=== PATIENT | female | born 1975 | race African-American/Black ===

== ENCOUNTER 2017-01-07 02:10 | Inpatient (IN) | payer BC ==
--- NOTE | ~2017-01-07 | DS ---
Discharge Summary [facility] [address] [place]. [address] NAME: GOKUL YAN : 75 STATUS : DIS IN PAT#: [id number] AGE: 41 ADM/REG DATE : 01/07/17 MR#: [id number] REPORT SERV DATE: 01/11/17 DICTATED BY: WALDO NEVES I. DATE: 01/10/17 REPORT STATUS : Draft TRANSCRIBED BY: MODL DATE: 01/10/17 ADMISSION DATE: 01/07/2017 DISCHARGE DATE: 01/10/2017 ADMITTING DIAGNOSES: 1. Right tubo-ovarian abscess. 2. Chronic anemia. DISCHARGE DIAGNOSES: 1. Right tubo-ovarian abscess. 2. Chronic anemia. PROCEDURES: Interventional radiology percutaneous drainage of right tubo-ovarian abscess. HISTORY OF PRESENT ILLNESS: Ms. Yan is a 41-year-old 2, para 2, who presented with lower abdominal and pelvic pain. Ultrasound was significant for a 10 cm right tubo- ovarian abscess. Upon admit, her vital signs were stable. HOSPITAL COURSE: The patient was admitted to the 4th floor and started on Zosyn and Flagyl for antibiotic coverage. On hospital day 1, she was sent to interventional radiology for percutaneous drainage of the right tubo-ovarian abscess. After drainage, she stated she felt much better and was able to tolerate food without difficulty. On hospital day 2, the patient again continued to improve. Her T-max was noted to be 100.3, and her white blood cells had dropped from 20,000 to 16,000. On hospital day 3, the patient continued to do well; however, she did have a fever of 100.7 overnight. Her white blood cell count continued to fall to 13,000. Her hemoglobin was noted to be 7.7. The patient states she has chronic anemia which is followed by her primary care doctor when questioned. On hospital day 4, the patient states she again continued to do well. Her pain was relieved. She had been afebrile for approximately 48 hours. Her vital signs were stable, and her white blood cell count was down to 9.4. She was discharged home in a stable condition; tolerating a regular diet, ambulating, urinating, and defecating without difficulty. DISCHARGE INSTRUCTIONS: The patient is to follow up with Dr. Reynolds on 01/11/2017 or 01/12/2017 for hospital followup and ultrasound. She is to call the office or present to the emergency room if she has a temperature greater than 100.4, severe nausea and vomiting, or severe abdominal pain. DISCHARGE MEDICATIONS: 1. Doxycycline 100 mg 1 tablet p.o. q.12 hours for 10 days to complete a 14-day course of antibiotics. 2. Percocet 5/325 one tab p.o. q.6 hours p.r.n. pain, #10. 3. Anaprox Double Strength 1 tablet p.o. q.12 hours, #30. 4. EzFe 1 tablet p.o. q.12 hours, #60. Discharge Summary [address] [address] NAME: GOKUL YAN : 75 STATUS : DIS IN [facility]#: [id number] AGE: 41 ADM/REG DATE : 01/07/17 MR#: [id number] REPORT SERV DATE: 01/11/17 DICTATED BY: WALDO NEVES I. DATE: 01/10/17 REPORT STATUS : Draft TRANSCRIBED BY: VAL DATE: 01/10/17 CII/VAL Waldo Neves M.D. / [id number] CC: Waldo Neves M.D.
[2017-01-07 01:38] LABS: ASCORBIC ACID (UR NOT ORDER) 40 (NEG); BILIRUBIN, URINE NEGATIVE (NEG); ER URINALYSIS TAT 0 Hrs 00 Mins; KETONE, URINE NEGATIVE (NEG); LEUKOCYTE ESTERASE(NOT OR NEG (NEG); NITRITE (URINE) POS (NEG); WBC (NOT ORDERED) (RFLEX) 4 (0-5)
[2017-01-07 01:55] LABS: BASOPHILS 0 %; BASOPHILS ABSOLUTE 0.01 10/3/uL (0.0-0.16); EOSINOPHILS 0 %; EOSINOPHILS ABSOLUTE 0.01 10/3/uL (0.0-0.53); ER CBC TAT 0 Hrs 07 Mins; HEMATOCRIT 30.8 % (36.0-48.0); HEMOGLOBIN 9.7 g/dL (12.0-16.0); IMMATURE GRANULOCYTES 0.4 %; IMMATURE GRANULOCYTES ABSOLUTE 0.08 10/3/uL (0.0-0.11); LYMPHOCYTES 3.3 %; LYMPHOCYTES ABSOLUTE 0.66 10/3/uL (0.67-4.30); MEAN CORPUS HGB CONC 31.5 g/dL (32.0-36.0); MEAN CORPUSCULAR HEMOGLOB 25.4 pg (26.0-34.0); MEAN CORPUSCULAR VOLUME 80.6 fL (80-100); MEAN PLATELET VOLUME 8.8 fL (9.2-13.0); MONOCYTES 1.2 %; MONOCYTES ABSOLUTE 0.24 10/3/uL (0.21-1.20); NEUTROPHILS 95.1 %; NEUTROPHILS ABSOLUTE 19.08 10/3/uL (2.02-8.40); PLATELET COUNT 494 10/3/uL (150-400); RBC DISTRIBUTION WIDTH 16.9 % (12.0-16.0); RED CELL COUNT 3.82 10/6/uL (4.0-5.6); WHITE BLOOD CELLS 20.1 10/3/uL (4.5-10.5)
[2017-01-07 01:57] LABS: MANUAL DIFF NO %
[2017-01-07 02:07] LABS: BUN (BLOOD UREA NITROGEN) 5 MG/DL (6-23); CALCIUM, SERUM 8.8 MG/DL (8.5-10.4); CHLORIDE, SERUM 107 MMOL/L (96-112); CO2 (CARBON DIOXIDE) 27 MMOL/L (24-34); GFR AFRICAN AMERICAN 131 ML/MIN (>=60); GFR NON AFRICAN AMERICAN 113 ML/MIN (>=60); GLUCOSE, SERUM 148 MG/DL (60-99); POTASSIUM, SERUM 3.8 MMOL/L (3.5-5.3); SODIUM, SERUM 145 MMOL/L (135-148)
[2017-01-07 02:42] LABS: LACTATE 0.9 MMOL/L (0.3-2.4)
[2017-01-07 05:19] LABS: CHLAMYDIA TRACH PCR NOT DETECTED (NOT DETEC); GC PCR NOT DETECTED (NOT DETECT); SOURCE: FEMALE URINE
[2017-01-07 10:07] LABS: INTERNATIONAL NORMAL RATI 1.3 UNITS (-); PROTIME (NOT ORD) 16.4 SEC (12.0-14.5)
[2017-01-07 10:08] LABS: PARTIAL THROMBO TIME 41.3 SEC (22.5-37.2)
[2017-01-08 05:17] LABS: BASOPHILS 0.1 %; BASOPHILS ABSOLUTE 0.01 10/3/uL (0.0-0.16); EOSINOPHILS ABSOLUTE 0.17 10/3/uL (0.0-0.53); HEMOGLOBIN 8.1 g/dL (12.0-16.0); IMMATURE GRANULOCYTES 0.3 %; IMMATURE GRANULOCYTES ABSOLUTE 0.05 10/3/uL (0.0-0.11); LYMPHOCYTES 8.9 %; LYMPHOCYTES ABSOLUTE 1.49 10/3/uL (0.67-4.30); MEAN CORPUS HGB CONC 31.3 g/dL (32.0-36.0); MEAN CORPUSCULAR HEMOGLOB 25.6 pg (26.0-34.0); MEAN PLATELET VOLUME 8.7 fL (9.2-13.0); MONOCYTES 1.9 %; MONOCYTES ABSOLUTE 0.32 10/3/uL (0.21-1.20); NEUTROPHILS 87.8 %; NEUTROPHILS ABSOLUTE 14.73 10/3/uL (2.02-8.40); PLATELET COUNT 375 10/3/uL (150-400); RBC DISTRIBUTION WIDTH 17.1 % (12.0-16.0); RED CELL COUNT 3.16 10/6/uL (4.0-5.6); WHITE BLOOD CELLS 16.8 10/3/uL (4.5-10.5)
[2017-01-08 05:18] LABS: HEMATOCRIT 25.9 % (36.0-48.0); MANUAL DIFF NO %
[2017-01-09 05:23] LABS: BASOPHILS 0.1 %; BASOPHILS ABSOLUTE 0.01 10/3/uL (0.0-0.16); EOSINOPHILS 1.7 %; EOSINOPHILS ABSOLUTE 0.23 10/3/uL (0.0-0.53); HEMATOCRIT 24.4 % (36.0-48.0); HEMOGLOBIN 7.7 g/dL (12.0-16.0); IMMATURE GRANULOCYTES 0.5 %; IMMATURE GRANULOCYTES ABSOLUTE 0.07 10/3/uL (0.0-0.11); MEAN CORPUS HGB CONC 31.6 g/dL (32.0-36.0); MEAN CORPUSCULAR HEMOGLOB 25.4 pg (26.0-34.0); MEAN CORPUSCULAR VOLUME 80.5 fL (80-100); MEAN PLATELET VOLUME 8.8 fL (9.2-13.0); MONOCYTES 2.8 %; MONOCYTES ABSOLUTE 0.39 10/3/uL (0.21-1.20); NEUTROPHILS 86.9 %; NEUTROPHILS ABSOLUTE 12.02 10/3/uL (2.02-8.40); PLATELET COUNT 361 10/3/uL (150-400); RBC DISTRIBUTION WIDTH 17.1 % (12.0-16.0); RED CELL COUNT 3.03 10/6/uL (4.0-5.6); WHITE BLOOD CELLS 13.8 10/3/uL (4.5-10.5)
[2017-01-09 05:26] LABS: MANUAL DIFF NO %
[2017-01-10 06:04] LABS: BASOPHILS 0.1 %; BASOPHILS ABSOLUTE 0.01 10/3/uL (0.0-0.16); EOSINOPHILS 2.2 %; EOSINOPHILS ABSOLUTE 0.21 10/3/uL (0.0-0.53); HEMATOCRIT 23.3 % (36.0-48.0); HEMOGLOBIN 7.2 g/dL (12.0-16.0); IMMATURE GRANULOCYTES 0.4 %; IMMATURE GRANULOCYTES ABSOLUTE 0.04 10/3/uL (0.0-0.11); LYMPHOCYTES 15.2 %; LYMPHOCYTES ABSOLUTE 1.43 10/3/uL (0.67-4.30); MANUAL DIFF NO %; MEAN CORPUS HGB CONC 30.9 g/dL (32.0-36.0); MEAN CORPUSCULAR HEMOGLOB 24.8 pg (26.0-34.0); MEAN CORPUSCULAR VOLUME 80.3 fL (80-100); MEAN PLATELET VOLUME 8.8 fL (9.2-13.0); MONOCYTES 5.9 %; MONOCYTES ABSOLUTE 0.56 10/3/uL (0.21-1.20); NEUTROPHILS 76.2 %; NEUTROPHILS ABSOLUTE 7.18 10/3/uL (2.02-8.40); PLATELET COUNT 376 10/3/uL (150-400); RBC DISTRIBUTION WIDTH 16.9 % (12.0-16.0); WHITE BLOOD CELLS 9.4 10/3/uL (4.5-10.5)
[2017-01-10] MEDS ORDERED: ANADS PO (10:28)
[2017-01-10] MEDS ORDERED: [UNRECOGNIZED DRUG - OTHER] (10:30)
[2017-01-10] MEDS ORDERED: IVVIBRA (10:31)
[2017-01-10] MEDS ORDERED: PERCOCET 7.5/321 TAB PO (10:32)
== END 2017-01-10 12:05 | disposition home or self-care (01) | DRG 854 ==
LOC: ER 02:10 → 4EA 06:31
PROVIDERS: Nurse Practitioner; Obstetrics & Gynecology
PROC: 0U9 Female Reproductive System, Drainage (ICD-10-PCS; principal; 2017-01-07)
PROC: 0U9 Female Reproductive System, Drainage (ICD-10-PCS; 2017-01-07)
DX: A41.9 Sepsis, unspecified organism (principal); N70.03 Acute salpingitis and oophoritis; D64.9 Anemia, unspecified
CPT/HCPCS: 36415; 49406; 74176; 76830; 76856; 80048; 81001; 83605; 84145; 84703; 85025; 85049; 85610; 85730; 86850; 86900; 86901; 87040; 87070; 87075; 87205; 87210; 87491; 87591; 88173; 96374; 96375; 96376; 99291; A9270-GY; C1729; C1769; J1170; J2250; J2405; J2543; J3010